=== PATIENT | female | born 1980 | race Caucasian/White ===

== ENCOUNTER 2018-08-17 16:37 | Emergency (ER) | payer OTHER, MEDICAID ==
[2018-08-17 17:43] LABS: PLATELET COUNT 359 10^3/uL (150-400)
[2018-08-17] MEDS ORDERED: NICOTINE 14 MG/24 HR PATCH TD ONE (19:55)
[2018-08-17] MEDS ORDERED: OLANZapine 5 MG TAB PO ONE (20:28)
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
[2018-08-17] MEDS ORDERED: LITHIUM CARBONATE 300 MG TAB PO SCH (21:00)
[2018-08-17] MEDS ORDERED: LITHIUM CARBONATE 300 MG TAB PO ONE (21:00)
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
--- NOTE | 2018-08-18 08:19 | ASMTTCLDSP ---
TLC Discharge Disposition Disposition: Answers: Discharge Disposition Notes: Notes: Transferred to [facility] under Corrie Elizondo NP. [facility] 3N at capacity due to Carissa Cava move today. Discharge Concerns/Recommendations: Notes: In consultation with [facility] ED physician, Josh Mack MD, Dr. Mack concurred that pt appears to meet 27-65 criteria requiring psychiatric hospitalization as pt appears to be gravely disabled due to a mental illness condition. Pt was read the Patient Rights and Responsibilities Statement on 08/17/17 by Christian Calderon at the [facility], original placed on chart, and was given photocopy of Rights. Pt declined to sign the Patient Rights. Was patient given the Answers: Not applicable Inpatient Behavioral Health Prohibited Belongings List while in the ED? Type of Hold: Answers: M1/72-hour Hold Hold initiated by: Answers: Police For Transfers, Accepting [facility] Facility: For Transfers, Accepting Corrie Elizondo NP Psychiatrist: For Transfers, Reason 3N at capacity due to Carissa Cava move today. Patient is Being Transferred: Date Signed: 08/18/2018 08:19 AM Electronically Signed By:Moy Kong
[2018-08-18 10:27] VITALS: BP 135/70
== END 2018-08-18 10:27 ==
LOC: EDUNIT#
DX: F31.12 Bipolar disorder, current episode manic without psychotic features, moderate (principal)
CPT/HCPCS: 80305; G0480